=== PATIENT | female | born 1990 | race Caucasian/White ===

== ENCOUNTER 2017-01-12 06:57 | Inpatient (IN) ==
--- NOTE | 2017-01-12 07:07 | ED.PDOC ---
General ED Provider: Dr. LIZA GUTIERREZ JR Chief Complaint: Altered Mental Status Stated Complaint[facility] nothing else Time Seen by Physician: 07:05 Mode of Arrival: Ambulance Information Source: Patient Exam Limitations: Clinical condition, Altered mental status, Intoxication Referred to ED by: Other Nursing and Triage Documentation Reviewed and Agree: No Review of Systems - Review Of Systems Constitutional: Reports: No symptoms Eyes: Reports: No symptoms Ears, Nose, Mouth, Throat: Reports: No symptoms Respiratory: Reports: No symptoms Cardiac: Reports: No symptoms GI: Reports: No symptoms : Reports: No symptoms Musculoskeletal: Reports: No symptoms Skin: Reports: No symptoms, Other (rn notes needle tracks and bruising each arm) Neurological: Reports: Cognitive dysfunction (drowsiness) Endocrine: Reports: No symptoms Hematologic/Lymphatic: Reports: No symptoms All Other Systems: Other (note patient is warm and dry) Past Medical History - Past Medical History Endocrine: Reports: Unknown Cardiovascular: Reports: Unknown Respiratory: Reports: Other Hematological: Reports: Unknown Gastrointestinal: Reports: Unknown Genitourinary: Reports: Unknown, Other (note OV 02/16/14 sinus pain 18w EGA) Neuro/Psych: Reports: Unknown Musculoskeletal: Reports: Unknown Cancer: Reports: Unknown Last Menstrual Period: one month - Surgical History General Surgical History: Reports: Unknown - Family History Family History: Reports: Unknown Physical Exam - Physical Exam Appearance: Well-appearing, Thin Eyes: ISMAEL, EOMI, Conjunctiva clear ENT: Nose normal, Oropharynx normal, Erythema (RIGHT EAR(EAC-ABRASIONS) WITHOUT TM PATHOLOGY) Neck: Supple Respiratory: Airway patent (SNORING RESP WHEN QUESTIONED) Cardiovascular: RRR GI/: Soft Musculoskeletal: ROM intact Skin: Warm, Dry (NOTE BRUISING) Neurological: Sensation intact, Motor intact, Oriented, Alert to verbal, Alert to pain Psychiatric: Affect appropriate Interpretation - EKG Interpretation Time of EKG #1: 07:18 Rate: Normal Rhythm: Sinus Ectopy: None [place]: NL ST Segment: Normal Re-Evaluation - Re-Evaluation Time of Re-Evaluation: 10:30 Status: Unchanged (VERY SLEEPY AWAKENS EASILY NO FURTHER HISTORY GIVE ON REQUESTS FOR INFORMATION) Appearance: NAD Lungs: Clear Skin: Warm and Dry Neuro: Other CV: RRR Critical Care Note - Critical Care Note Total Time (mins): 10 Course - Course Hematology/Chemistry: 01/12/17 07:10 01/12/17 07:10 Orders, Labs, Meds: Lab Review 01/12/17 01/12/17 01/12/17 07:10 07:10 09:55 WBC 6.03 RBC 4.52 Hgb 13.2 Hct 39.9 MCV 88.3 MCH 29.2 MCHC 33.1 RDW Coeff of Jenn 13.7 Plt Count 326 Immature Gran % (Auto) 0.3 Neut % (Auto) 51.2 Lymph % (Auto) 33.2 [place] % (Auto) 11.8 H Eos % (Auto) 2.8 Baso % (Auto) 0.7 Immature Gran # (Auto) 0.0 Neut # 3.1 Lymph # 2.0 [place] # 0.7 Eos # 0.2 Baso # 0.0 Sodium 140 Potassium 3.5 Chloride 104 Carbon Dioxide 26 Anion Gap 13.5 BUN 7 Creatinine 0.81 Estimated GFR (MDRD) 85.00 BUN/Creatinine Ratio 8.64 Glucose 94 Calcium 9.8 Total Bilirubin 0.32 AST 20 ALT 13 Alkaline Phosphatase 107 H Total Protein 8.2 Albumin 4.1 Globulin 4.1 Albumin/Globulin Ratio 1.00 Urine Color Urine Clarity Urine pH Ur Specific [place] Urine Protein Urine Glucose (UA) Urine Ketones Urine Blood Urine Nitrite Urine Bilirubin Urine Urobilinogen Ur Leukocyte Esterase Urine Microscopic WBC Ur Squamous Epith Cells Urine Bacteria Salicylate Level mg/dL < 5.0 Urine Opiates Screen Negative Ur Oxycodone Screen Negative Urine Methadone Screen Negative Ur Propoxyphene Screen Negative Acetaminophen < 3 L Ur Barbiturates Screen Negative U Tricyclic Antidepress Negative Ur Phencyclidine Scrn Negative Ur Amphetamine Screen Positive U Methamphetamines Scrn Positive U Benzodiazepines Scrn Negative Urine Cocaine Screen Negative U Cannabinoids Screen Negative Plasma/Serum Alcohol < 10.0 01/12/17 09:55 WBC RBC Hgb Hct MCV MCH MCHC RDW Coeff of Jenn Plt Count Immature Gran % (Auto) Neut % (Auto) Lymph % (Auto) [place] % (Auto) Eos % (Auto) Baso % (Auto) Immature Gran # (Auto) Neut # Lymph # [place] # Eos # Baso # Sodium Potassium Chloride Carbon Dioxide Anion Gap BUN Creatinine Estimated GFR (MDRD) BUN/Creatinine Ratio Glucose Calcium Total Bilirubin AST ALT Alkaline Phosphatase Total Protein Albumin Globulin Albumin/Globulin Ratio Urine Color Yellow Urine Clarity Cloudy Urine pH 6.0 Ur Specific [place] 1.010 Urine Protein Negative Urine Glucose (UA) Negative Urine Ketones Negative Urine Blood Trace-lysed Urine Nitrite Positive Urine Bilirubin Negative Urine Urobilinogen 0.2 Ur Leukocyte Esterase 2+ Urine Microscopic WBC Tntc Ur Squamous Epith Cells 5-10 Urine Bacteria 4+ Salicylate Level mg/dL Urine Opiates Screen Ur Oxycodone Screen Urine Methadone Screen Ur Propoxyphene Screen Acetaminophen Ur Barbiturates Screen U Tricyclic Antidepress Ur Phencyclidine Scrn Ur Amphetamine Screen U Methamphetamines Scrn U Benzodiazepines Scrn Urine Cocaine Screen U Cannabinoids Screen Plasma/Serum Alcohol Orders Category Date Time Status ADMIT PATIENT INPATIENT .TO MEDSURG (MONITORED BED) ADMISSION 01/12/17 11: 12 Active EKG-(ED ONLY) Stat CARDIO 01/12/17 06:59 Completed ACTIVITY .Early Mobilization for VTE Prevention CARE 01/12/17 11:12 Completed CASE MANAGEMENT CONSULT ONCE CARE 01/12/17 11:13 Completed INTAKE & OUTPUT Q8HR CARE 01/12/17 11:12 Active TELEMETRY MONITORING TELE CARE 01/12/17 11:13 Active VITAL SIGNS Q4HR CARE 01/12/17 11:12 Completed ACCUCHECK (ED) [ED ACCUCHECK ASSESSMENT] .ONCE EMERGENCY 01/12/17 07:00 Active 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 EMERGENCY 01/12/17 06:59 Active ED IV/MEDIPORT/POWERPORT .ONCE EMERGENCY 01/12/17 06:59 Active ACETAMINOPHEN Stat LAB 01/12/17 07:10 Completed BLOOD ALCOHOL Stat LAB 01/12/17 07:10 Completed BLOOD CULTURE Routine LAB 01/12/17 11:48 Received CBC W/ AUTO DIFF DAILY@0600 LAB 01/13/17 06:00 Ordered CBC W/ AUTO DIFF DAILY@0600 LAB 01/14/17 06:00 Ordered CBC W/ AUTO DIFF Stat LAB 01/12/17 07:10 Completed COMPREHENSIVE METABOLIC PANEL DAILY@0600 LAB 01/13/17 06:00 Ordered COMPREHENSIVE METABOLIC PANEL DAILY@0600 LAB 01/14/17 06:00 Ordered COMPREHENSIVE METABOLIC PANEL Stat LAB 01/12/17 07:10 Completed DRUG SCREEN, URINE, RAPID Stat LAB 01/12/17 09:55 Completed SALICYLATE Stat LAB 01/12/17 07:10 Completed SERUM Stat LAB 01/12/17 Completed URINALYSIS C & S IF INDICATED Stat LAB 01/12/17 09:55 Completed URINE CULTURE Stat LAB 01/12/17 09:55 Received 0.9 % Sodium Chloride [Saline Flush] MEDS 01/12/17 06:59 Active 1 syr IVF PRN PRN Ceftriaxone Sodium [Rocephin] MEDS 01/12/17 10:41 Discontinued 1 gm .ROUTE .STK-MED ONE Ceftriaxone Sodium [Rocephin] 1 gm MEDS 01/13/17 09:00 Active 0.9 % Sodium Chloride [Sodium Chloride] 50 ml IV DAILY Ceftriaxone Sodium [Rocephin] 1 gm MEDS 01/12/17 10:14 Discontinued 0.9 % Sodium Chloride [Sodium Chloride] 50 ml IV ONCE Potassium Chloride in 0.9%NaCl [Sodium Chloride 0.9%- MEDS 01/12/17 11:30 Active KCl 20 Meq] 1,000 ml IV 75 mls/hr Potassium Chloride in 0.9%NaCl [Sodium Chloride 0.9%- MEDS 01/12/17 09:36 Active KCl 40Meq] 1,000 ml IV 100 mls/hr Sodium Chloride 0.9% [Sodium Chloride] 1,000 ml MEDS 01/12/17 07:12 Discontinued IV BOLUS Sodium Chloride 0.9% [Sodium Chloride] 1,000 ml MEDS 01/12/17 08:31 Discontinued IV BOLUS RESUSCITATION STATUS Routine OTHERS 01/12/17 11:[address] HEAD W/O CONTRAST Stat RADS 01/12/17 09:37 Completed Medications Generic Name Dose Route Start Last Admin Trade Name Freq PRN Reason Stop Dose Admin Potassium Chloride/Sodium Chloride 1,000 mls @ 100 mls/hr 01/12/17 09:36 09:42 Sodium Chloride 0.9%-Kcl 40meq IV 01/12/17 19:35 100 mls/hr .Q10H STA Administration Ceftriaxone Sodium 1 gm/ 50 mls @ 75 mls/hr 01/13/17 09:00 Sodium Chloride IV DAILY BLAKE Potassium Chloride/Sodium Chloride 1,000 mls @ 75 mls/hr 01/12/17 11:30 01/12 15:49 Sodium Chloride 0.9%-Kcl 20 Meq IV 75 mls/hr .[id number] BLAKE Administration Sodium Chloride 1 syr 01/12/17 06:59 01/12/17 07:32 Saline Flush IVF 1 syr PRN PRN Administration To flush IV Discontinued Medications Generic Name Dose Route Start Last Admin Trade Name Dustinq PRN Reason Stop Dose Admin Sodium Chloride 1,000 mls @ 1,000 mls/hr 01/12/17 07:12 01/12/17 07:32 Sodium Chloride IV 01/12/17 08:11 1,000 mls/hr BOLUS STA Administration Sodium Chloride 1,000 mls @ 1,000 mls/hr 01/12/17 08:31 01/12/17 08:37 Sodium Chloride IV 01/12/17 09:30 1,000 mls/hr BOLUS STA Administration Ceftriaxone Sodium 1 gm/ 50 mls @ 75 mls/hr 01/12/17 10:14 01/12/17 10:47 Sodium Chloride IV 01/12/17 10:53 75 mls/hr ONCE STA Administration Vital Signs: Temp Pulse Resp BP Pulse Ox 01/12/17 06:58 97.2 F L 73 18 110/87 98 Departure - Departure Time of Disposition: 11:00 Disposition: ADMITTED INPATIENT Discharge Problem: Altered mental status Condition: Stable Pt referred to PMD for follow-up: No (DR GORMAN) Allergies/Adverse Reactions: Allergies latex Adverse Reaction (Verified 01/12/17 07:13) Sulfa (Sulfonamide Antibiotics) Adverse Reaction (Verified 01/12/17 07:13) Home Medications: Ambulatory Orders 1 [No Reported Medications] 01/12/17
[2017-01-12 07:12] VITALS: BMI 25.0
[2017-01-12] MEDS ORDERED: SODIUM CHLORIDE 1,000 ML IV STA ×2 (07:12→08:31)
[2017-01-12 07:17] LABS: BASOPHILS % (AUTO) 0.7 % (0.0-3.0); EOSINOPHILS # (AUTO) 0.2 K/ul (0.0-0.7); EOSINOPHILS % (AUTO) 2.8 % (0.0-7.0); HEMATOCRIT 39.9 % (37.0-47.0); HEMOGLOBIN 13.2 g/dl (12.0-16.0); IMMATURE GRANULOCYTE % (AUTO) 0.3 % (0.0-5.0); LYMPHOCYTES % (AUTO) 33.2 (10.0-50.0); MEAN CORPUSCULAR HEMOGLOBIN 29.2 pg (27.0-31.0); MEAN CORPUSCULAR HGB CONC 33.1 (31.8-35.4); MEAN CORPUSCULAR VOLUME 88.3 fl (81.0-99.0); MONOCYTES # (AUTO) 0.7 K/uL (0.4-2.0); MONOCYTES % (AUTO) 11.8 (0-10); NEUTROPHILS # (AUTO) 3.1 K/ul (2.0-6.9); NEUTROPHILS % (AUTO) 51.2; PLATELET COUNT 326 10^3/uL (140-440); RED BLOOD COUNT 4.52 10^6/ul (4.20-5.40); WHITE BLOOD COUNT 6.03 K/ul (4.6-10.2)
[2017-01-12 07:37] LABS: ACETAMINOPHEN < 3 ug/ml (10-30); ALANINE AMINOTRANSFERASE 13 U/L (12-78); ALBUMIN 4.1 g/dL (3.4-5.0); ALKALINE PHOSPHATASE 107 U/L (42-98); ANION GAP 13.5; ASPARTATE AMINO TRANSFERASE 20 U/L (15-37); BILIRUBIN,TOTAL 0.32 mg/dL (0.00-1.20); BLOOD UREA NITROGEN 7 mg/dL (7-18); BUN/CREATININE RATIO 8.64; CALCIUM 9.8 mg/dL (8.2-10.2); CARBON DIOXIDE 26 mmol/L (21-32); CHLORIDE 104 mmol/L (98-107); CREATININE 0.81 mg/dL (0.60-1.30); GLUCOSE 94 mg/dL (70-110); POTASSIUM 3.5 mmol/L (3.5-5.10); SALICYLATE < 5.0 mg/dL (2.8-20.0); SODIUM 140 mmol/L (136-145); TOTAL PROTEIN 8.2 g/dL (6.4-8.2)
[2017-01-12] MEDS ORDERED: SODIUM CHLORIDE 0.9%-KCL 40MEQ 1,000 ML IV STA (09:36)
[2017-01-12 10:00] LABS: SERUM PREGNANCY INTERNAL QC INTERNAL QC VALID
[2017-01-12 10:02] LABS: BILIRUBIN,URINE Negative (NEGATIVE); KETONES,URINE Negative (NEGATIVE); LEUKOCYTE ESTERASE ,URINE 2+ (NEGATIVE); NITRITE,URINE Positive (NEGATIVE); PROTEIN,URINE Negative (NEGATIVE); URINE, BLOOD Trace-lysed (NEGATIVE)
[2017-01-12 10:03] LABS: ADD URINE MICROSCOPIC YES
[2017-01-12 10:09] LABS: BACTERIA,URINE 4+ (NOT PRESENT)
[2017-01-12 10:13] LABS: COCAIN SCREEN,URINE NEGATIVE (NEGATIVE)
[2017-01-12] MEDS ORDERED: ROCEPHIN 1 GM in SODIUM CHLORIDE 50 ML IV STA (10:14)
[2017-01-12] MEDS ORDERED: ROCEPHIN ONE (10:41)
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
[2017-01-12 15:48] LABS: WBC FEW (FEW)
[2017-01-12] MEDS: SODIUM CHLORIDE 0.9%-KCL 20 MEQ 1,000 ML IV SCH (15:49)
[2017-01-13 05:03] LABS: BASOPHILS % (AUTO) 0.6 % (0.0-3.0); EOSINOPHILS # (AUTO) 0.3 K/ul (0.0-0.7); EOSINOPHILS % (AUTO) 5.1 % (0.0-7.0); HEMATOCRIT 34.9 % (37.0-47.0); HEMOGLOBIN 11.7 g/dl (12.0-16.0); IMMATURE GRANULOCYTE % (AUTO) 0.2 % (0.0-5.0); LYMPHOCYTES # (AUTO) 2.9 K/uL (0.60-3.4); LYMPHOCYTES % (AUTO) 45.7 (10.0-50.0); MEAN CORPUSCULAR HEMOGLOBIN 29.8 pg (27.0-31.0); MEAN CORPUSCULAR HGB CONC 33.5 (31.8-35.4); MONOCYTES # (AUTO) 0.6 K/uL (0.4-2.0); MONOCYTES % (AUTO) 10.3 (0-10); NEUTROPHILS # (AUTO) 2.4 K/ul (2.0-6.9); NEUTROPHILS % (AUTO) 38.1; PLATELET COUNT 281 10^3/uL (140-440); RED BLOOD COUNT 3.92 10^6/ul (4.20-5.40); WHITE BLOOD COUNT 6.24 K/ul (4.6-10.2)
[2017-01-13 05:46] LABS: ALBUMIN 3.1 g/dL (3.4-5.0); ALBUMIN/GLOBULIN RATIO 0.97; ANION GAP 8.3; BILIRUBIN,TOTAL 0.16 mg/dL (0.00-1.20); BUN/CREATININE RATIO 8.57; CALCIUM 8.8 mg/dL (8.2-10.2); CREATININE 0.7 mg/dL (0.60-1.30); POTASSIUM 4.3 mmol/L (3.5-5.10); TOTAL PROTEIN 6.3 g/dL (6.4-8.2)
[2017-01-13] MEDS ORDERED: ROCEPHIN 1 GM in SODIUM CHLORIDE 50 ML IV SCH (09:00)
[2017-01-13 10:24] VITALS: BP 122/64; TEMP 98.3
[2017-01-13] MEDS: SODIUM CHLORIDE 0.9%-KCL 20 MEQ 1,000 ML IV SCH ×2 (14:05→14:12)
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
== END 2017-01-13 14:20 | disposition home or self-care (01) | DRG 897 ==
LOC: ED 06:57 → MEDSURG B 11:19
PROVIDERS: ADMIT Emergency Medicine; ATTEND Emergency Medicine
DX: F15.90 Other stimulant use, unspecified, uncomplicated (principal); N39.0 Urinary tract infection, site not specified; R41.82 Altered mental status, unspecified; F19.90 Other psychoactive substance use, unspecified, uncomplicated; B96.20 Unspecified Escherichia coli [E. coli] as the cause of diseases classified elsewhere; F31.9 Bipolar disorder, unspecified; F41.8 Other specified anxiety disorders; Z16.11 Resistance to penicillins
CPT/HCPCS: 36415; 80053; 80306; 80307; 81001; 82962; 84703; 85025; 87040; 87086; 87186; 87210; 93005; 93010; 96361; 96365; 99284

== ENCOUNTER 2021-12-24 09:20 | Observation (INO) ==
[2021-12-24 09:27] VITALS: BMI 23.3
[2021-12-24] MEDS ORDERED: GI COCKTAIL PO ONE (09:36)
[2021-12-24] MEDS ORDERED: PROTONIX IV IVP ONE (09:36)
[2021-12-24] MEDS ORDERED: ZOFRAN 4 MG/2 ML IVP ONE (09:36)
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
[2021-12-24 09:48] LABS: BASOPHILS # (AUTO) 0.1 K/uL (0-0.2); BASOPHILS % (AUTO) 1.2 % (0.0-3.0); EOSINOPHILS # (AUTO) 0.9 K/ul (0.0-0.7); EOSINOPHILS % (AUTO) 17.2 % (0.0-7.0); HEMOGLOBIN 11.2 g/dl (12.0-16.0); IMMATURE GRANULOCYTE % (AUTO) 0.2 % (0.0-5.0); LYMPHOCYTES # (AUTO) 1.2 K/uL (0.60-3.4); LYMPHOCYTES % (AUTO) 22.8 (10.0-50.0); MEAN CORPUSCULAR HEMOGLOBIN 29.9 pg (27.0-31.0); MEAN CORPUSCULAR VOLUME 93.6 fl (81.0-99.0); MONOCYTES # (AUTO) 0.4 K/uL (0.4-2.0); MONOCYTES % (AUTO) 7.9 (0-10); NEUTROPHILS # (AUTO) 2.6 K/ul (2.0-6.9); NEUTROPHILS % (AUTO) 50.7 % (42.2-75.2); PLATELET COUNT 237 10^3/uL (140-440); RDW COEFFICIENT OF VARIATION 13.3 % (11.6-14.8); RED BLOOD COUNT 3.74 10^6/ul (4.20-5.40); WHITE BLOOD COUNT 5.17 K/ul (4.6-10.2)
[2021-12-24 10:00] LABS: ALANINE AMINOTRANSFERASE 10.7 U/L (0-35); ALBUMIN 4.06 g/dL (3.5-5.0); ASPARTATE AMINO TRANSFERASE 25.5 U/L (14-36); BILIRUBIN,TOTAL 0.27 mg/dL (0.2-1.3); CALCIUM 8.9 mg/dL (8.4-10.2); CARBON DIOXIDE 26.3 mmol/L (22-30.0); CHLORIDE 106.4 mmol/L (98-107); CREATININE 0.66 mg/dL (0.60-1.30); LIPASE 74.3 U/L (23-300); POTASSIUM 4.46 mmol/L (3.5-5.1); TOTAL PROTEIN 6.88 g/dL (6.3-8.2)
[2021-12-24 10:03] LABS: PARTIAL THROMBOPLASTIN TIME 26.7 SEC (23.9-40.0); PROTHROMBIN TIME 10.4 SEC (9.3-11.0)
[2021-12-24 10:30] LABS: BILIRUBIN,URINE Negative (NEGATIVE); CLARITY,URINE Clear (CLEAR); COLOR,URINE Yellow (YELLOW); GLUCOSE, URINE (UA) Negative (NEGATIVE); KETONES,URINE Negative (NEGATIVE); LEUKOCYTE ESTERASE ,URINE Negative (NEGATIVE); NITRITE,URINE Negative (NEGATIVE); PROTEIN,URINE Negative (NEGATIVE); URINE PREGNANCY TEST NEGATIVE (NEGATIVE); URINE, BLOOD Negative (NEGATIVE); UROBILINOGEN,URINE 0.2 (0.2)
--- NOTE | 2021-12-24 11:15 | CT ---
EXAM: CT Abdomen without contrast. CT Pelvis without contrast. HISTORY: Generalized abdominal pain. COMPARISON: None. TECHNIQUE: Multiple axial images of the abdomen and pelvis were obtained without intravenous contras t. Images were reformatted in the sagittal and coronal plane. FINDINGS: Please note that evaluation of the abdominal and pelvic structures is limited due to lack of intravenous contrast. Lung bases are clear. No acute osseous abnormality identified. 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 Otherwise, the liver, gallbladder, pancreas, spleen, adrenal glands, and left kidney appear normal. Subtle right renal pelviectasis with adjacent fat stranding. No calcified urinary tract st ones are seen. Bladder appears normal. No bowel obstruction or acute inflammation. Appendix normal. Tiny fatty umbilical hernia. Uterus demonstrates normal contour. Phleboliths in the pelvis. Minimal fat stranding in the pelvis, possibly physiologic. IMPRESSION: 1. Question right pyelonephritis. 2. Otherwise no acute abnormality within the abdomen or pelvis. All CT scans are performed using dose optimization techniques as appropriate to the performed exam an d include at least one of the following: Automated exposure control, adjustment of the mA and/or kV according t o size, and the use of iterative reconstruction technique.
[2021-12-24] MEDS ORDERED: SODIUM CHLORIDE 1,000 ML IV STA (11:21)
[2021-12-24] MEDS ORDERED: ROCEPHIN 1 GM/50 ML D5W 1 GM/50 ML BAG IV ONE (11:23)
[2021-12-24] MEDS ORDERED: TYLENOL PO PRN (11:26)
[2021-12-24] MEDS: SODIUM CHLORIDE 1,000 ML IV SCH ×2 (13:32→23:55)
[2021-12-24] MEDS ORDERED: ZANAFLEX PO ONE (14:56)
[2021-12-24] MEDS ORDERED: TORADOL IVP ONE (14:56)
[2021-12-24] MEDS: PROTONIX IV IVP SCH (17:01)
[2021-12-24] MEDS: ZOFRAN 4 MG/2 ML IVP SCH (20:59)
[2021-12-25] MEDS ORDERED: TORADOL IVP STA (04:17)
[2021-12-25 04:54] LABS: BASOPHILS % (AUTO) 0.7 % (0.0-3.0); EOSINOPHILS # (AUTO) 0.7 K/ul (0.0-0.7); EOSINOPHILS % (AUTO) 12.1 % (0.0-7.0); HEMATOCRIT 31.9 % (37.0-47.0); HEMOGLOBIN 10.2 g/dl (12.0-16.0); IMMATURE GRANULOCYTE % (AUTO) 0.2 % (0.0-5.0); LYMPHOCYTES # (AUTO) 1.7 K/uL (0.60-3.4); LYMPHOCYTES % (AUTO) 28.8 (10.0-50.0); MEAN CORPUSCULAR HEMOGLOBIN 29.7 pg (27.0-31.0); MONOCYTES # (AUTO) 0.5 K/uL (0.4-2.0); MONOCYTES % (AUTO) 8.1 (0-10); NEUTROPHILS % (AUTO) 50.1 % (42.2-75.2); PLATELET COUNT 222 10^3/uL (140-440); RDW COEFFICIENT OF VARIATION 13.4 % (11.6-14.8); RED BLOOD COUNT 3.43 10^6/ul (4.20-5.40); WHITE BLOOD COUNT 5.94 K/ul (4.6-10.2)
[2021-12-25 05:00] LABS: ALBUMIN 3.4 g/dL (3.5-5.0); BILIRUBIN,TOTAL 0.3 mg/dL (0.2-1.3); CALCIUM 8.3 mg/dL (8.4-10.2); CREATININE 0.6 mg/dL (0.60-1.30); TOTAL PROTEIN 5.8 g/dL (6.3-8.2)
[2021-12-25] MEDS: PROTONIX IV IVP SCH (05:41)
[2021-12-25] MEDS ORDERED: ROCEPHIN 1 GM/50 ML D5W 1 GM/50 ML BAG IV SCH (09:00)
[2021-12-25] MEDS: ZOFRAN 4 MG/2 ML IVP SCH (09:03)
--- NOTE | 2021-12-25 09:43 | PCM.PROG ---
Date Seen by Provider: 12/25/21 Time Seen by Provider: 09:00 Subjective: Less abdominal pain. Tolerating oral intake. No emesis or diarrhea. Objective: Vitals: T=97.1 F, P=72, R=18, TY=631/72, SPO2=99 Patient is alert and in NAD. She appears to be mildly ill. HEENT: []Oral mucosa moist. Neck: [] Lungs: [] Clear. BS equal. CVS: [] RRR Abdomen: []Nondistended, soft, with mild generalized tenderness. No peritoneal signs. Extremities: [] Neurological: [] Skin: [] Lab/Tests/Diagnostic Imaging: [] (1) Acute gastroenteritis: Status: Acute Code(s): K52.9 - Noninfective gastroenteritis and colitis, unspecified SNOMED Code(s): 01456295 Plan: Urinalysis is clean and WBC is normal. Possible pyelonephritis indicated only by CT scan;no clinical evidence. Will discharge patient now that she is tolerating PO intake without emesis or diarrhea.
--- NOTE | 2021-12-25 09:48 | PCM.DC ---
Final Diagnosis: acute gastroenteritis Physical Exam Appearance: No pain distress and Well-nourished Ill-appearing: Mild Pain Distress: None Eyes: Not Examined ENT: Other (oral mucosa moist) Neck: Supple Respiratory: Airway patent, Breath sounds clear and Breath sounds equal Cardiovascular: RRR, No rub and No murmur GI/: Soft, Nontender, No masses, Bowel sounds normal, No Organomegaly and Other (nondistended.) Musculoskeletal: Normal strength, ROM intact and No edema Skin: Warm, Dry and Normal color Neurological: Sensation intact, Motor intact, Alert and Oriented Psychiatric: Affect appropriate and Mood appropriate (1) Acute gastroenteritis: Status: Acute Code(s): K52.9 - Noninfective gastroenteritis and colitis, unspecified SNOMED Code(s): 78032095 Reason for Hospitalization: patient admitted with abdominal pain, nausea and emesis Prognosis/Condition at Discharge: condition at discharge was good. Medications at Discharge: patient discharged home on her prior home medications Lab/Diagnostics: CT abd/pelvis with findings only of possible right pyelonephritis Education Provided to Patient and Family: gastroenteritis Follow-ups: follow up with your primary care provider as needed Discharge Disposition: Home Hospital Course: Patient admitted with abdominal pain, nausea and emesis. CT scan of abd/pelvis was weakly suggestive of pyelonephritis. Ultimately it was felt that she had acute gastroenteritis. Patient was hydrated with IVF. Oral intake was resumed and advanced as tolerated. Patient was tolerating regular diet at discharge. Abdominal pain had resolved.
[2021-12-25 10:36] VITALS: BP 113/80; TEMP 97.5
== END 2021-12-25 11:00 | disposition home or self-care (01) ==
LOC: ED 09:20 → INTOOBSV 13:55 → MEDSURG A 13:55
PROVIDERS: ADMIT Emergency Medicine Emergency Medical Services; ATTEND Surgery
DX: M13.80 Other specified arthritis, unspecified site; N12 Tubulo-interstitial nephritis, not specified as acute or chronic; Z20.822 Contact with and (suspected) exposure to COVID-19; Z87.891 Personal history of nicotine dependence; K52.9 Noninfective gastroenteritis and colitis, unspecified